=== PATIENT | female | born 1965 | race Caucasian/White ===

== ENCOUNTER → 2017-09-10 | Outpatient (CLI) | payer OTHER | LOC: FIMAGING 13:36 | PROVIDERS: ATTEND Internal Medicine | DX: N85.2 Hypertrophy of uterus (principal); D25.9 Leiomyoma of uterus, unspecified; N83.291 Other ovarian cyst, right side ==

== ENCOUNTER 2017-12-20 07:13 | Inpatient (IN) | payer OTHER ==
[2017-12-20] MEDS ORDERED: fentaNYL 100 MCG/2 ML INJ IVP PRN (07:15)
[2017-12-20] MEDS ORDERED: PROTAMINE SULFATE 50 MG/5 ML VIAL IVP PRN (07:15)
[2017-12-20] MEDS ORDERED: MEPERIDINE 25 MG/ML SYR IVP PRN (07:15)
[2017-12-20] MEDS ORDERED: SCOPOLAMINE HYDROBROMIDE 1 MG/3 DAYS PATCH TD ONE (07:15)
[2017-12-20] MEDS ORDERED: ALTEPLASE 2 MG VIAL IVP PRN (07:15)
[2017-12-20] MEDS ORDERED: HEPARIN 10,000 UNIT/10 ML MDV (1,000 UNIT/ML) IVP PRN (07:15)
[2017-12-20] MEDS ORDERED: FLUMAZENIL 0.5 MG/5 ML MDV IVP PRN (07:15)
[2017-12-20] MEDS ORDERED: DEXAMETHASONE 10 MG/ML VIAL IVP ONE (07:15)
[2017-12-20] MEDS ORDERED: NS 1,000 ML IV ONE (07:15)
[2017-12-20] MEDS ORDERED: NALOXONE HCL 0.4 MG/ML INJ IVP PRN ×2 (07:15→10:11)
[2017-12-20] MEDS ORDERED: MIDAZOLAM 2 MG/2 ML VIAL IVP PRN (07:15)
[2017-12-20] MEDS ORDERED: KETOROLAC 30 MG/1 ML SDV IVP ONE (07:15)
[2017-12-20] MEDS ORDERED: GLUCAGON HCL 1 MG VIAL IVP PRN (07:15)
[2017-12-20 08:02] LABS: PLATELET COUNT 301 10^3/uL (150-400)
[2017-12-20 08:11] LABS: INR 0.94 (0.83-1.16); PROTIME(PATIENT) 12.8 SEC (12.0-15.0)
--- NOTE | 2017-12-20 08:14 | PDGENHP ---
History & Physical Chief Complaint: UTERINE FIBROIDS History of Present Illness: BULK SYMPTOMS AND HEAVY BLEEDING. Pertinent Past, Social, Family History: BREAST REDUCTION, ANAL FISSURE, HEMORRHOIDS REMOVED. Relevant Physical Exam: NO PAIN OR DISCOMFORT NOW. Cardiorespiratory Assessment: RRR,CTA
--- NOTE | 2017-12-20 08:14 | PDPROPOC ---
Sedation Plan of Care Sedation Plan of Care: vital signs stable, mental status noted, patient educated of risks, benefits, alternatives, patient can tolerate sedation ASA Classification: ASA 2 Planned drugs: fentanyl, midazolam Mallampati Score: Class 2 Mallampati Reference Image: Patient passed 3-3-2 rule?: Yes
[2017-12-20] MEDS ORDERED: FLUMAZENIL 0.5 MG/5 ML MDV IVP ONE (08:43)
[2017-12-20] MEDS ORDERED: MIDAZOLAM 2 MG/2 ML VIAL ONE (08:44)
[2017-12-20] MEDS ORDERED: NALOXONE HCL 0.4 MG/ML INJ ONE (08:44)
[2017-12-20] MEDS ORDERED: fentaNYL 100 MCG/2 ML INJ ONE (08:44)
[2017-12-20] MEDS ORDERED: IOPAMIDOL (ISOVUE-300) 100 ML BTL ONE ×2 (09:00→09:52)
[2017-12-20] MEDS: HYDROmorphONE/DILAUDID 6 MG/30 ML PCA IV PRN (10:54)
[2017-12-20] MEDS ORDERED: BISACODYL 10 MG SUPP PR PRN (11:25)
[2017-12-20] MEDS ORDERED: LACTULOSE 20 GM/30 ML UDCUP PO PRN (11:25)
[2017-12-20] MEDS ORDERED: POLYETHYLENE GLYCOL 3350 17 GM PKT PO PRN (11:25)
[2017-12-20] MEDS ORDERED: PROMETHAZINE HCL 25 MG/ML INJ IVP PRN (11:25)
[2017-12-20] MEDS ORDERED: MAGNESIUM HYDROXIDE 30 ML UDCUP PO PRN (11:25)
[2017-12-20] MEDS ORDERED: NS 1,000 ML IV SCH (11:30)
--- NOTE | 2017-12-20 11:33 | PDRADPN ---
Radiology Procedure Note Date of Procedure: 12/20/17 Radiologist: Teodora Barnes Anesthesia: IV Sedation Pre-op Diagnosis: UTERINE FIBROIDS Post-op Diagnosis: SAME Indication: HEAVY MENSTRATION Procedure: UAE Finding(s): SEE REPORT Inf/Abcess present in the surg proc area at time of surgery?: No
[2017-12-20] MEDS ORDERED: BUPIVACAINE 0.5% 30 ML SDV ONE (11:34)
[2017-12-20] MEDS ORDERED: LIDOCAINE 1% 300 MG/30 ML SDV ONE (11:34)
[2017-12-20] MEDS ORDERED: NITROGLYCERIN/D5W 50 MG/250 ML BOTTLE IV ONE (11:34)
[2017-12-20] MEDS: ONDANSETRON 4 MG/2 ML VIAL IVP PRN ×2 (13:16→17:57)
[2017-12-20] MEDS: KETOROLAC 30 MG/1 ML SDV IVP SCH ×2 (13:23→18:54)
[2017-12-20] MEDS: morphINE SR 15 MG TAB PO SCH (20:16)
[2017-12-20] MEDS: SENNOSIDES/DOCUSATE SODIUM TAB PO SCH (20:16)
[2017-12-20] MEDS ORDERED: SENNOSIDES 17.6 MG/10 ML UDL PO SCH (21:00)
[2017-12-21] MEDS: KETOROLAC 30 MG/1 ML SDV IVP SCH ×2 (00:18→06:18)
[2017-12-21] MEDS: ONDANSETRON 4 MG/2 ML VIAL IVP PRN (01:03)
[2017-12-21] MEDS: HYDROmorphONE/DILAUDID 6 MG/30 ML PCA IV PRN (03:46)
[2017-12-21] MEDS ORDERED: fentaNYL 100 MCG/2 ML INJ IVP PRN (04:09)
[2017-12-21] MEDS ORDERED: OXYCODONE/APAP 5/325 TAB PO PRN (04:09)
[2017-12-21] MEDS: NS 500 ML IV SCH ×2 (07:30→16:53)
[2017-12-21] MEDS ORDERED: levOFLOXACIN 500 MG/DEXTROSE 100 ML IV ONE (09:00)
[2017-12-21] MEDS: SENNOSIDES/DOCUSATE SODIUM TAB PO SCH ×2 (13:09→20:21)
[2017-12-21] MEDS: morphINE SR 15 MG TAB PO SCH ×2 (13:25→20:33)
[2017-12-21] MEDS: IBUPROFEN 600 MG TAB PO SCH ×2 (14:24→20:20)
[2017-12-21] MEDS ORDERED: KETOROLAC 30 MG/1 ML SDV IVP ONE (14:38)
[2017-12-21] MEDS ORDERED: ONDANSETRON DISINTEGRATING 4 MG TAB PO PRN (14:39)
[2017-12-21] MEDS ORDERED: NS 1,000 ML IV SCH (14:45)
--- NOTE | 2017-12-21 14:59 | SOAPPROG ---
SOAP Progress Note Assessment/Plan: Assessment: Post UAE. Having a challenging time controlling pain and nausea. Patient waffling between awake with pain and somnolent with medications. No clinical signs of infection. Bladder scans done showing no significant residual. Plan: 1. Wean off of IV pain meds 2. Another dose of Toradol administered to allow patient to become more awake to take PO meds 3. When awake, encourage PO ibuprofen and main meds. 4. Continue IVF at 100cc/hr 5. Change to inpatient status for above reasons. 12/21/17 14:54 Subjective: Nurse called last night, stating patient is in severe pain. During day today, patient's pain has been controlled, but continued with significant nausea. After a dose of IV phenergan, patient is now heavy asleep. Not arousable. Objective: Vital Signs Temp Pulse Resp BP Pulse Ox 36.1 C 52 L 14 111/68 96 12/21/17 11:45 12/21/17 11:45 12/21/17 13:31 12/21/17 11:45 12/21/17 13:31 Laboratory Results 12/20/17 07:50 12/20/17 07:50 12/20/17 12/21/17 12/22/17 05:59 05:59 05:59 Intake Total 2050 Output Total 460 275 Balance 1590 -275 PT 12.8 SEC (12.0-15.0) 12/20/17 07:50 INR 0.94 (0.83-1.16) 12/20/17 07:50 Vitals stable. O2sat at 98% on 2L NC. Abd soft. No hematoma. ICD10 Worksheet Patient Problems: Problems Problem Status Onset Uterine fibroid Acute - ICD10 Problem Qualifiers (1) Uterine fibroid Qualifiers: Uterine leiomyoma location: submucous Qualified Code(s): D25.0 - Submucous leiomyoma of uterus
--- NOTE | 2017-12-21 16:56 | PDMN ---
Medical Necessity Medical necessity: [facility] Obstetric and Gynecologic Surgery or Procedure, 52 y/o s/p uterine artery embolization post op day 1 unable to control pain and nausea and going between awake w/ pain and somnolent with medications. IVF need to be continued. Status change to inpt 12/21/17 @ 1648 to continue monitoring and treatment with IV pain control, IV antiemetics and IV fluids.
[2017-12-21] MEDS: HYDROmorphONE/DILAUDID 1 MG/ML INJ IVP PRN ×2 (17:02→19:06)
[2017-12-21] MEDS: oxyCODONE IR 5 MG TAB PO PRN ×2 (18:09→22:12)
[2017-12-22] MEDS: IBUPROFEN 600 MG TAB PO SCH ×2 (02:33→08:50)
[2017-12-22] MEDS: oxyCODONE IR 5 MG TAB PO PRN (05:55)
[2017-12-22] MEDS: SENNOSIDES/DOCUSATE SODIUM TAB PO SCH (08:49)
[2017-12-22] MEDS: morphINE SR 15 MG TAB PO SCH (08:57)
[2017-12-22 09:02] VITALS: BP 103/68
--- NOTE | 2017-12-22 12:48 | SOAPPROG ---
SOAP Progress Note Assessment/Plan: Assessment: Post UAE. Having a challenging time controlling pain and nausea. Patient waffling between awake with pain and somnolent with medications. No clinical signs of infection. Bladder scans done showing no significant residual. Plan: 1. Wean off of IV pain meds 2. Another dose of Toradol administered to allow patient to become more awake to take PO meds 3. When awake, encourage PO ibuprofen and main meds. 4. Continue IVF at 100cc/hr 5. Change to inpatient status for above reasons. 12/21/17 14:54 12/22/17 12:47 d/c home today. d/c instructions discussed with patient. Subjective: Much better from yesterday. pain now at 1-07/03. nausea resolved. tolerating po meds and food. urinating. Objective: Vital Signs Temp Pulse Resp BP Pulse Ox 36.5 C 73 14 103/68 93 12/22/17 08:59 12/22/17 08:59 12/22/17 08:59 12/22/17 08:59 12/22/17 02:43 Laboratory Results 12/20/17 07:50 12/20/17 07:50 12/21/17 12/22/17 12/23/17 05:59 05:59 05:59 Intake Total 2050 2775 200 Output Total 460 750 950 Balance 1590 2025 -750 PT 12.8 SEC (12.0-15.0) 12/20/17 07:50 INR 0.94 (0.83-1.16) 12/20/17 07:50 abd exam benign. - Pending Discharge Pending Discharge Within 24 Hours: Yes Pending Discharge Date: 12/23/17 Pending Discharge Time: 11:00 ICD10 Worksheet Patient Problems: Problems Problem Status Onset Uterine fibroid Acute - ICD10 Problem Qualifiers (1) Uterine fibroid Qualifiers: Uterine leiomyoma location: submucous Qualified Code(s): D25.0 - Submucous leiomyoma of uterus
--- NOTE | 2017-12-30 22:19 | GDS ---
[f rep st] DISCHARGE SUMMARY ADMISSIONS DIAGNOSIS: Symptomatic uterine fibroids. DISCHARGE DIAGNOSIS: Symptomatic uterine fibroids. PROCEDURE PERFORMED: Uterine artery embolization on November 2017. HOSPITAL COURSE: The patient was admitted to Mom/Baby Unit. The standard uterine artery embolizatio n protocol was initiated. However, the patient had a significant amount of difficulty with nausea, w hich prohibited her from taking long-acting narcotic oral pain meds. She also required abundant amou nt of intravenous phenergan for controlling of her nausea, which in turn made her very sleepy. Durin g sleeping episodes, patient would not hit her MANAGER HEART pump button, therefore awaking in severe pain and playing catch-up the entire time. This entire cycle essentially postponed the patient's recovery for a whole day, necessitating inpatient admission status for 2-day stay. The patient eventually was ab le to be awake enough to be controlling her pain medications with MANAGER HEART pump, and have her nausea be co ntrolled well enough to take oral pain medications. When that happened, she was able to be weaned of f her MANAGER HEART pump, and eventually deemed as stable, relatively low on pain level, to be discharged home 2 days after procedure. Discharge instructions were given in detail to the patient. The patient also had a followup phone call several days after discharge, at which time she reported e xcellent recovery. DISCHARGE CONDITION: Stable. DISCHARGE MEDICATIONS: A prescription for MS Contin, 50 mg twice a day, and oxycodone, 5-10 mg every 4 hours p.r.n. breakthrough pain were given to the patient. Most of the discharge instruction consi sts of instructions on how to take ibuprofen. FOLLOWUP: No followup with Interventional Radiology is needed. Followup with her primary care physi elizabeth and [employer] physician as previously set up. /[id number]/MODL
== END 2017-12-22 13:39 | disposition home or self-care (01) | DRG 941 ==
LOC: FIMAGING 07:13 → F3E 11:26 → FOB 13:00 → OBSVTOIN 12-21 16:48
PROVIDERS: ADMIT Radiology Diagnostic Radiology; ATTEND Radiology Diagnostic Radiology
DX: G89.18 Other acute postprocedural pain (principal); R11.2 Nausea with vomiting, unspecified; D25.9 Leiomyoma of uterus, unspecified
CPT/HCPCS: C1760; C1769; C1894; J1100; J1170; J1644; J1885; J1956; J2250; J2310; J2405; J2550; J3010; Q9967